=== PATIENT | female | born 2000 | race Caucasian/White ===

== ENCOUNTER 2020-08-02 00:05 | Inpatient (IN) | payer OTHER ==
[2020-08-02 00:55] LABS: HCT 32.1 % (37.0-47.0); MCH 26.1 pg (25.0-31.0); MCHC 31.2 g/dL (32.0-36.0); MCV 83.8 fL (78.0-100.0); MPV 11.2 fL (6.0-9.5); RBC 3.83 M/uL (4.20-5.40); RDW 23.9 % (11.5-14.0); WBC 7.5 K/uL (4.0-10.5)
[2020-08-02 00:56] LABS: BILIRUBIN NEGATIVE (NEGATIVE); BLOOD NEGATIVE Ery/uL (NEGATIVE); CLARITY CLEAR (CLEAR); COLOR YELLOW (YELLOW); GLUCOSE (U) NORMAL (NORMAL); LEUKOCYTES NEGATIVE Leu/uL (NEGATIVE); NITRITE NEGATIVE (NEGATIVE); PROTEIN NEGATIVE (NEGATIVE); SPECIFIC GRAVITY >=1.030 (1.001-1.030); UROBILINOGEN 0.2 mg/dL (0.2-1.0)
[2020-08-03 10:47] LABS: BASOPHIL 0.3 % (0-2); EOSINOPHIL 0.9 % (0-5); HGB 8.8 g/dl (12.5-16.0); LYMPHOCYTE 13.9 % (15-48); MCH 26.7 pg (25.0-31.0); MCHC 31.4 g/dL (32.0-36.0); MCV 85.1 fL (78.0-100.0); MPV 11.3 fL (6.0-9.5); NEUTROPHIL 75.6 % (41-80); NRBC 0; PLT 214 K/uL (150-400); RBC 3.29 M/uL (4.20-5.40); RDW 24.4 % (11.5-14.0); WBC 11.6 K/uL (4.0-10.5)
[2020-08-04] MEDS ORDERED: MOTRIN600 MG PO (13:14)
[2020-08-04] MEDS ORDERED: FEOSOL325 MG PO (13:14)
[2020-08-04] MEDS ORDERED: PRENATAL FORMU1 EACH PO (13:14)
[2020-08-04] MEDS ORDERED: COLACE100 MG PO (13:15)
== END 2020-08-04 14:20 | disposition home or self-care (01) | DRG 805 ==
LOC: FOB 00:05
PROVIDERS: ADMIT Obstetrics & Gynecology
PROC: 10E0XZZ Delivery of Products of Conception, External Approach (ICD-10-PCS; principal; 2020-08-02)
PROC: 3E0P7VZ Introduction of Hormone into Female Reproductive, Via Natural or Artificial Opening (ICD-10-PCS; 2020-08-02)
PROC: 4A1HX4Z Monitoring of Products of Conception, Cardiac Electrical Activity, External Approach (ICD-10-PCS; 2020-08-02)
DX: O48.0 Post-term pregnancy (principal); U07.1 COVID-19; Z37.0 Single live birth; O98.52 Other viral diseases complicating childbirth; D62 Acute posthemorrhagic anemia; Z3A.40 40 weeks gestation of pregnancy; O69.1XX0 Labor and delivery complicated by cord around neck, with compression, not applicable or unspecified; O99.03 Anemia complicating the puerperium; N87.0 Mild cervical dysplasia; Z79.899 Other long term (current) drug therapy
CPT/HCPCS: 36415; 81003; 85025; J2405; J2916; J7120; U0002